=== PATIENT | female | born 1980 | race African-American/Black ===

== ENCOUNTER 2016-05-14 14:30 | Emergency (ER) | payer OTHER ==
[~2016-05-14] VITALS: Ht 152.4 cm; Wt 69.8 kg
[2016-05-14 15:38] LABS: *URINE HCG, QUAL NEGATIVE (NEGATIVE)
--- NOTE | 2016-05-14 16:34 | NUR ---
A/O x4, vss, nad at this time; L ring finger splinted; Patient discharged home in stable conditon. Written and verbal after care instructions given. Patient verbalizes understanding of instructions. Ambulates w/ steady gait. Prescription provided, instructed not to drive.
[2016-05-14 16:41] VITALS: BP 118/72
== END 2016-05-14 16:42 | disposition home or self-care (01) ==
LOC: ER 14:30
DX: S20.219A Contusion of unspecified front wall of thorax, initial encounter (principal); S70.02XA Contusion of left hip, initial encounter; S69.92XA Unspecified injury of left wrist, hand and finger(s), initial encounter; W22.8XXA Striking against or struck by other objects, initial encounter; Y93.89 Activity, other specified; Y99.8 Other external cause status; Y92.89 Other specified places as the place of occurrence of the external cause
CPT/HCPCS: 29130; 71010; 73140; 73502; 84703; 93005; 99284; A4663

== ENCOUNTER 2016-06-25 01:05 | Emergency (ER) | payer OTHER ==
[~2016-06-25] VITALS: Ht 152.4 cm; Wt 69.9 kg
[2016-06-25] MEDS: HYDROCODONE/APAP 10-325 MG TABLET PO ONE (01:26)
[2016-06-25] MEDS ORDERED: HYDROCODONE/APAP 10-325 MG TABLET ONE (01:33)
--- NOTE | 2016-06-25 01:37 | NUR ---
Patient discharged to home in stable conditon. Written and verbal after care instructions given. Patient verbalizes understanding of instructions.
== END 2016-06-25 01:39 | disposition home or self-care (01) ==
LOC: ER 01:10
DX: S70.02XA Contusion of left hip, initial encounter (principal); M25.512 Pain in left shoulder; M54.2 Cervicalgia; X58.XXXA Exposure to other specified factors, initial encounter; Y93.9 Activity, unspecified; Y99.9 Unspecified external cause status; Y92.9 Unspecified place or not applicable
CPT/HCPCS: A4663